=== PATIENT | male | born 1945 | race Caucasian/White ===

== ENCOUNTER → 2018-02-18 | Outpatient (CLI) | payer OTHER ==
[~2018-02-18] MED LIST: ASPEC81 PO; FLM4 PO; MELO15TA3 PO; SIMV40TA2 PO
--- NOTE | 2018-02-18 08:39 | DIAGNOSTIC IMAGING REPORT ---
SINUS CT CT DOSE: 627.12 mGy.cm HISTORY: SINUSITIS,J32.9,R73.09,R68.2 TECHNIQUE: Multiaxial CT images of the paranasal sinuses were performed and reformatted in the coronal plane without the use of contrast. A dose lowering technique was utilized adhering to the principles of ALARA. COMPARISON: None. FINDINGS: The frontal sinuses are clear. There is moderate mucosal thickening within the ethmoid air cells and floor of the left maxillary sinus. 2.1 cm retention cyst within the floor of the right maxillary sinus. Small amount of bubbly secretions within the left sphenoid sinus. The mastoid air cells are clear. Small defect within the medial wall the left maxillary sinus suggestive of an antrostomy. The priyanka dustin is partially pneumatized. The orbital floors and lamina papyracea are intact. The right ostiomeatal unit remains patent. There is an occluded left ostiomeatal unit. The nasal septum is midline. The orbits are unremarkable. IMPRESSION: 1. Moderate mucosal thickening within the paranasal sinuses and a small amount of bubbly secretions within the left sphenoid sinus as described above. 2. 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 However, there is a small defect within the medial wall the left maxillary sinus suggestive of an antrostomy. Electronically signed by: Mariano Mcneill M.D. 02/18/2018 8:31 AM Dictated Date/Time: 02/18/2018 8:23 AM
[2018-02-18 09:33] LABS: BASO % 0.2 %; BASO ABS # 0.01 K/uL (0-0.2); EOS % 2.2 %; EOS ABS # 0.12 K/uL (0-0.5); HEMATOCRIT 44.5 % (42-52); HEMOGLOBIN 15.2 g/dL (14.0-18.0); LYMPH % 26.6 %; LYMPH ABS # 1.45 K/uL (1.2-3.4); MEAN CELL VOLUME 89.5 fL (80-100); MEAN CORPUSCULAR HEMOGLOBIN 30.6 pg (25-34); MEAN CORPUSCULAR HGB CONC 34.2 g/dl (32-36); MEAN PLATELET VOLUME 11.3 fL (7.4-10.4); MONO % 10.5 %; MONO ABS # 0.57 K/uL (0.11-0.59); NEUT % 60.5 %; PLATELET COUNT 144 K/uL (130-400); RED CELL DISTRIBUTION WIDTH SD 45.7 fL (36.4-46.3); WHITE BLOOD COUNT 5.45 K/uL (4.8-10.8)
[2018-02-18 09:50] LABS: BLOOD UREA NITROGEN 23 mg/dl (7-18); CALCIUM 8.5 mg/dl (8.5-10.1); CARBON DIOXIDE 29 mmol/L (21-32); CREATININE 1.08 mg/dl (0.60-1.40); GLUCOSE 88 mg/dl (70-99); POTASSIUM 4.2 mmol/L (3.5-5.1); SODIUM 139 mmol/L (136-145)
[2018-02-19 15:30] LABS: ANA SCREEN TC 249X POSITIVE (NEGATIVE)
[2018-02-22 14:41] LABS: ANA TITER 1:40 TITER (<1:40)
== END | disposition home or self-care (01) ==
LOC: C.CTS 07:55
PROVIDERS: ATTEND Family Medicine
DX: J32.9 Chronic sinusitis, unspecified (principal); R73.09 Other abnormal glucose; R68.2 Dry mouth, unspecified